=== PATIENT | female | born 1945 | race Caucasian/White ===

== ENCOUNTER 2023-07-03 13:18 | Outpatient (CLI) | payer MEDICARE, BC | END 2023-07-03 13:19 | disposition home or self-care (01) | LOC: CSHMAMMO 13:18 | PROVIDERS: ATTEND Student in an Organized Health Care Education/Training Program | DX: Z12.31 Encounter for screening mammogram for malignant neoplasm of breast (principal); Z80.3 Family history of malignant neoplasm of breast; Z98.890 Other specified postprocedural states | CPT/HCPCS: 77063; 77067 ==

== ENCOUNTER 2024-07-08 09:01 | Outpatient (CLI) | payer MEDICARE, BC ==
[2024-07-08] MEDS ORDERED: Magnevist 469MG/ML 20 ML VIAL ONE (09:05)
== END 2024-07-08 09:02 | disposition home or self-care (01) ==
LOC: CSHMRI 09:01
PROVIDERS: ATTEND Psychiatry & Neurology Neurology
DX: G45.9 Transient cerebral ischemic attack, unspecified (principal); J32.4 Chronic pansinusitis; G93.89 Other specified disorders of brain
CPT/HCPCS: 36415; 70553; 76376; 82565

== ENCOUNTER 2025-03-10 09:39 | Outpatient (CLI) | payer MEDICARE, BC | END 2025-03-10 09:40 | disposition home or self-care (01) | LOC: CSHMAMMO 09:39 | PROVIDERS: ATTEND Internal Medicine | DX: M81.0 Age-related osteoporosis without current pathological fracture (principal); M85.851 Other specified disorders of bone density and structure, right thigh | CPT/HCPCS: 77080 ==

== ENCOUNTER 2025-07-13 10:00 | Outpatient (CLI) | payer MEDICARE, BC | END 2025-07-13 10:01 | disposition home or self-care (01) | LOC: CSHMAMMO 10:00 | PROVIDERS: ATTEND Internal Medicine | DX: Z12.31 Encounter for screening mammogram for malignant neoplasm of breast (principal); Z80.3 Family history of malignant neoplasm of breast; Z91.89 Other specified personal risk factors, not elsewhere classified | CPT/HCPCS: 77063; 77067 ==